=== PATIENT | male | born 1955 | race Caucasian/White ===

== ENCOUNTER 2017-05-25 10:22 | Emergency (ER) | payer SELFPAY ==
[2017-05-25] MEDS ORDERED: DOXY100T20 PO (13:29)
[2017-05-25] MEDS ORDERED: DOCU-144 PO (13:29)
[2017-05-25] MEDS ORDERED: TRAM50TA2 PO (13:29)
== END 2017-05-25 10:35 | disposition left against medical advice (07) ==
LOC: E/R 10:22
DX: Z53.21 Procedure and treatment not carried out due to patient leaving prior to being seen by health care provider (principal)

== ENCOUNTER 2017-05-25 11:30 | Emergency (ER) | payer OTHER ==
[~2017-05-25] VITALS: Ht 160 cm; Wt 61.5 kg
[2017-05-25 11:54] VITALS: Ht 160 cm; Wt 61.5 kg
[2017-05-25] MEDS ORDERED: LIDOCAINE 1% (MDV) 20 ML INJ SC ONE (12:30)
[2017-05-25] MEDS ORDERED: ACETAMINOPHEN 325 MG TAB PO ONE (12:30)
[2017-05-25] MEDS ORDERED: DOCU-144 PO (13:29)
[2017-05-25] MEDS ORDERED: DOXY100T20 PO (13:29)
[2017-05-25] MEDS ORDERED: TRAM50TA2 PO (13:29)
--- NOTE | 2017-05-25 13:32 | ERD ---
ER Documentation Chief Complaint Date/Time DATE: 05/25/17 TIME: 13:30 Chief Complaint C/O HEMORHOID PAIN. NO BLEEDING. HPI 62-year-old male complains of rectal pain worsening over the last week. Denies any fevers, vomiting, additional symptoms. ROS All systems reviewed and are negative except as per history of present illness. Medications Home Meds Active Scripts Docusate Sodium* (Colace*) 100 Mg Capsule, 100 MG PO BID, #30 CAP Prov:HUNTER MEJIA MD 05/25/17 Tramadol HCl (Tramadol HCl) 50 Mg Tablet, 50 MG PO Q4 Y for PAIN, #15 TAB Prov:HUNTER MEJIA MD 05/25/17 Doxycycline Hyclate* (Doxycycline Hyclate*) 100 Mg Tablet.dr, 100 MG PO BID for 7 Days, TAB Prov:HUNTER MEJIA MD 05/25/17 Allergies Allergies: Coded Allergies: No Known Allergy (Unverified , 05/25/17) PMhx/Soc Medical and Surgical Hx: pt denies Surgical Hx History of Surgery: No Anesthesia Reaction: No Hx Neurological Disorder: No Hx Respiratory Disorders: No Hx Cardiac Disorders: No Hx Psychiatric Problems: No Hx Miscellaneous Medical Probl: Yes (HEMORRHOIDS ) Hx Alcohol Use: No Hx Substance Use: No Hx Tobacco Use: No Smoking Status: Never smoker Physical Exam Vitals Vital Signs Date Time Temp Pulse Resp B/P Pulse Ox O2 Delivery O2 Flow Rate FiO2 05/25/17 11:54 98.4 90 19 177/96 99 Physical Exam Const: []Alert, [id number]. Head: Atraumatic Eyes: Normal Conjunctiva ENT: Normal External Ears, Nose and Mouth. Neck: Full range of motion..~ No meningismus. Resp: Clear to auscultation bilaterally Cardio: Regular rate and rhythm, no murmurs Abd: Soft, non tender, non distended. Normal bowel sounds Skin: No petechiae or rashes. At 12:00 on the rectal there is erythematous fluctuant area. There is no external hemorrhoid as well with no obvious thrombosis. Back: No midline or flank tenderness Ext: No cyanosis, or edema Neur: Awake and alert Psych: Normal Mood and Affect Results 24 hrs Current Medications Medications (Trade) Dose Ordered Sig/Vaughn Route PRN Reason Start Time Stop Time Status Last Admin Dose Admin Lidocaine (Xylocaine 1% (Mdv) 20 ml) 20 ml ONCE ONCE SC 05/25/17 12:30 05/25/17 12:31 DC Acetaminophen (Tylenol Tab) 650 mg ONCE ONCE PO 05/25/17 12:30 05/25/17 12:31 DC 05/25/17 12:33 Procedures/MDM Patient was given Tylenol for pain. Procedure note-rectal area was prepped with Betadine. 4 cc of lidocaine was used for local infiltration. The hemorrhoid was incised via blunt dissection no appreciable thrombosis was obtained. Over the more superior area of fluctuance and incision was made and via blunt dissection positive pus was expressed approximately 4 5 cc. Loculations were broken up with a probe and the wound was packed with approximately 6 cm of quarter-inch gauze. Patient tolerated procedure well and wound was dressed. Patient presents with a perianal abscess successfully incised and drained. Discharged home the prescription of doxycycline, tramadol and it Colace and instructions for 2 day wound check. He should return sooner for fevers, vomiting, new worsening symptoms. Departure Diagnosis: Primary Impression: Abscess Condition: Stable Patient Instructions: Lore-Anal Abscess, I And D Additional Instructions: Recheck in 2 days for gauze removal. Recheck sooner for worsening redness, fevers, vomiting, new symptoms HUNTER MEJIA MD May 25, 2017 13:32
== END 2017-05-25 13:50 | disposition home or self-care (01) ==
LOC: FTE 11:30
DX: K61.1 Rectal abscess (principal)

== ENCOUNTER 2017-05-27 11:12 | Emergency (ER) | payer OTHER ==
[~2017-05-27] VITALS: Ht 160 cm; Wt 61.0 kg
[~2017-05-27 11:12] MED LIST: DOCU-144 PO; DOXY100T20 PO; TRAM50TA2 PO
[2017-05-27 11:16] VITALS: Ht 160 cm; Wt 61.0 kg
--- NOTE | 2017-05-27 11:59 | ERD ---
ER Documentation Chief Complaint Date/Time DATE: 05/27/17 TIME: 11:57 Chief Complaint pt seen here saturday for hemorroid issue and told to come back for check HPI 62-year-old male comes in for perianal incision and drainage wound check from 2 days ago. Patient is currently taking antibiotics, states that the pain is improving. He denies any fevers or chills. ROS All systems reviewed and are negative except as per history of present illness. Medications Home Meds Active Scripts Docusate Sodium* (Colace*) 100 Mg Capsule, 100 MG PO BID, #30 CAP Prov:HUNTER MEJIA MD 05/25/17 Tramadol HCl (Tramadol HCl) 50 Mg Tablet, 50 MG PO Q4 Y for PAIN, #15 TAB Prov:HUNTER MEJIA MD 05/25/17 Doxycycline Hyclate* (Doxycycline Hyclate*) 100 Mg Tablet.dr, 100 MG PO BID for 7 Days, TAB Prov:HUNTER MEJIA MD 05/25/17 Allergies Allergies: Coded Allergies: No Known Allergy (Unverified , 05/25/17) PMhx/Soc History of Surgery: No Anesthesia Reaction: No Hx Neurological Disorder: No Hx Respiratory Disorders: No Hx Cardiac Disorders: No Hx Psychiatric Problems: No Hx Miscellaneous Medical Probl: Yes (HEMORRHOIDS ) Hx Alcohol Use: No Hx Substance Use: No Hx Tobacco Use: No Smoking Status: Never smoker Physical Exam Vitals Vital Signs Date Time Temp Pulse Resp B/P Pulse Ox O2 Delivery O2 Flow Rate FiO2 05/27/17 11:16 98.5 75 18 162/88 98 Physical Exam General: Well-developed, well-nourished. The patient appears in no acute distress. HEENT: Head is normocephalic, atraumatic. No scleral icterus. Neck: Supple. Nontender. Lungs: Clear to auscultation. Normal air movement. Heart: Regular rate and rhythm. S1 and S2 are normal. No murmurs, gallops, or rubs. Abdomen: Nondistended. Rectal: There is a 1 cm incision that is approximately 3 cm away from the rectum at the 7 o'clock position. Packing material is seen, when removed, there is a small amount of purulent drainage appreciated. No surrounding cellulitis. No fistula appreciated. Extremities: No clubbing or cyanosis. Moving extremities x 4. No weakness. Neurologic: Alert and oriented 3. No focal deficits. Normal speech and gait. Skin: Normal turgor. No rash or lesions. Procedures/MDM MDM: 62-year-old male comes in with a perianal abscess status post incision and drainage from 2 days ago. There was a small amount of purulent material that was able to be expressed when the packing material was removed, otherwise wound appears to be clean, no worsening abscess. Patient advised to do warm soaks, continue antibiotics. Wound shows no evidence of infection, foreign body, neurologic injury, vascular injury, open joint or tendon laceration. Patient appropriate for outpatient follow up. Patient's blood pressure was elevated (>120/80) but appears stable without evidence of hypertension emergency or urgency. The patient was counseled about the risks of hypertension and urged to pursue outpatient monitoring and therapy within a week with their primary care physician. Departure Diagnosis: Primary Impression: Perianal abscess Additional Impression: Encounter for wound re-check Condition: Good Patient Instructions: Wound Care DARREN ROJAS PA-C May 27, 2017 11:59
== END 2017-05-27 12:02 | disposition home or self-care (01) ==
LOC: FTE 11:12
DX: K61.0 Anal abscess (principal)
CPT/HCPCS: 99281